=== PATIENT | female | born 1980 | race American Indian/Alaskan Native ===

== ENCOUNTER 2017-04-29 16:59 | Emergency (ER) | payer OTHER ==
[2017-04-29 17:18] VITALS: BP 119/81
[2017-04-29] MEDS ORDERED: TORADOL IM ONE (19:45)
--- NOTE | 2017-04-29 20:06 | XRay Report ---
FINAL REPORT PROCEDURE: XR ELBOW 3 RT TECHNIQUE: Three views of the right elbow are obtained HISTORY: SWELLING COMPARISON: No prior studies are available for comparison. FINDINGS: There is no fracture or dislocation. No arthritic changes are seen. There is no joint effusion. There may be mild soft tissue swelling. IMPRESSION: There may be mild soft tissue swelling but no bony abnormality is seen.
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
== END 2017-04-29 22:17 | disposition home or self-care (01) ==
LOC: ED 16:59
DX: S56.911A Strain of unspecified muscles, fascia and tendons at forearm level, right arm, initial encounter (principal); X50.0XXA Overexertion from strenuous movement or load, initial encounter; Y93.89 Activity, other specified; Y99.8 Other external cause status; Y92.89 Other specified places as the place of occurrence of the external cause
CPT/HCPCS: 73080; 96372; 99283; J1885